=== PATIENT | female | born 1960 | race Hispanic/Latino ===

== ENCOUNTER 2024-01-12 17:19 | Emergency (ER) | payer OTHER ==
[~2024-01-12] VITALS: Ht 160 cm; Wt 79.8 kg
[2024-01-12 17:32] VITALS: BP 120/75; PULSE 62; RESP 16; TEMP 98.3; O2SAT 98
[2024-01-12] MEDS: ORPHENADRINE 60MG/2ML IM ONE (18:10)
[2024-01-12] MEDS: TRIAMCINOLONE ACETONIDE 40 MG/ML 1ML VIAL IM ONE (18:10)
[2024-01-12] MEDS: ketOROlac 60 MG VIAL (30MG/ML) IM ONE (19:17)
[2024-01-12] MEDS ORDERED: CYCL10TA16 PO (20:01)
== END 2024-01-12 20:30 | disposition home or self-care (01) ==
LOC: EDH 17:19
DX: G57.02 Lesion of sciatic nerve, left lower limb (principal); E11.9 Type 2 diabetes mellitus without complications; I11.9 Hypertensive heart disease without heart failure; Z90.49 Acquired absence of other specified parts of digestive tract; Z95.1 Presence of aortocoronary bypass graft; Z98.890 Other specified postprocedural states
CPT/HCPCS: 99284; 96372 ×3; J3301; J1885; J2360